=== PATIENT | female | born 1990 | race Caucasian/White ===

== ENCOUNTER 2017-02-14 21:10 | Emergency (ER) | payer OTHER ==
--- NOTE | ~2017-02-14 | ER ---
PATIENT'S NAME: ZARINA DAIGLE [facility] AGE: 26 Y [address] ROOM: [place] [id number] LOCATION: ED ADMIT DATE: 02/14/2017 ER/Outpatient Report DISCHARGE DATE: 02/14/2017 FAMILY PHYSICIAN: PHYSICIAN, NO ATTENDING PHYSICIAN: Flo Vale CHIEF COMPLAINT: Body aches, headache. TIME OF THE PATIENT ARRIVAL: 0 hours. TIME OF THE PATIENT EVALUATION: 2114 hours. HISTORY OF PRESENT ILLNESS: This is a 26-year-old female who presents to the ER who states she drank some absinthe alcohol drink 4 nights ago. She states the next morning she woke up and had a terrible headache from it. She states she has been taking Excedrin Migraine with no relief of her headache. She has continued to feel nauseated. She states she has generalized achiness all over her body. She has a sore throat and just generally does not feel well. She is not for sure if she has been running any fevers at home, but she has felt hot. She denies any troubles with bowel movements or urination. ALLERGIES: BACTRIM. MEDICATIONS: Please see medication list nurse's notes. PAST MEDICAL HISTORY: Fibromyalgia, chronic back pain, and tonsillectomy. SOCIAL HISTORY: She drinks wine daily. REVIEW OF SYSTEMS: All systems reviewed were negative with the exception of those discussed in the HPI. PHYSICAL EXAMINATION: VITAL SIGNS: Height 5 feet, 3 inches stated, weight 105.2 kg taken, blood pressure is 141/92, pulse 98, respirations 16, temperature 98.1 degrees tympanically, and saturations 97% on room air. Liz Coma Score is 15. PATIENT'S NAME: ZARINA DAIGLE [facility] AGE: 26 Y [address] ROOM: [place], [place] [id number] LOCATION: [facility] ADMIT DATE: 02/14/2017 ER/Outpatient Report DISCHARGE DATE: 02/14/2017 FAMILY PHYSICIAN: PHYSICIAN, NO ATTENDING PHYSICIAN: Flo Vale GENERAL: Alert, obese female, in no obvious distress. HEENT: Head: Normocephalic. Eyes: Pupils are equal and reactive to light. Ears: TMs display good reflexes bilaterally. Auditory canals clear. Nose: Turbinates pink with no drainage. Throat: No exudates or erythema. She does display moist mucous membranes. LUNGS: Clear to auscultation bilaterally. HEART: Regular rate and rhythm. ABDOMEN: She has generalized tenderness in all 4 quadrants with palpation. No guarding. No rebound tenderness. She has good bowel sounds throughout. EXTREMITIES: No clubbing or cyanosis. She has full range of motion of all limbs. SKIN: Warm, dry, and intact. LABORATORY DATA: CBC: White count is 5.4, platelets 200, ANC is 2.1. CMS: Sodium was 139, potassium 3.5, total bili is 0.8, alk phos is 248, AST 253, ALT 170; otherwise, unremarkable. HCG was less than 1.0. IMPRESSION: Headache, body aches, and nausea. ASSESSMENT AND PLAN: We did monitor the patient here in the emergency room. We did give the patient 2 Pall Mall here in the emergency room for her pain. The patient did not wish for any further workup in regards to her liver enzymes being elevated. She would like to try some nausea medication and possibly a few pain medications to see how that would make her feel at home to see if she could make herself feel better. I will dismiss her home with prescriptions for Pall Mall and Zofran to use as directed. She needs to push fluids and monitor her symptoms. She needs to follow up with her primary care physician for followup when she returns to [place] or she should return to the emergency room if anything worsens. The patient and the patient's sister understand and agree with care. JL DESOUZA PA-C FOR MD DEBBY REED/surya /[id number] d: 02/15/17 0016 t: 02/25/17 1817, OUTPATIENT REPORT
[2017-02-14 21:54] LABS: HEMATOCRIT 44.1 % (33.0-46.0); HEMOGLOBIN 14.9 g/dL (11.0-15.0); MCH 29.6 pg (27.0-34.0); MCHC 33.8 gm/dL (32.0-36.5); MCV 87.5 fl (83.0-98.0); MPV 9.6 fl (9.4-12.4); PLATELET COUNT 200 K/uL (150-450); RBC 5.04 M/uL (3.50-5.00); RDW-CV 12.4 % (11.9-14.6); WBC 5.4 K/uL (4.0-11.0)
[2017-02-14 22:16] LABS: ALBUMIN 3.5 gm/dL (3.5-5.0); ALK PHOS 248 IU/L (33-138); ALT 170 IU/L (12-78); ANION GAP 12.5 (10.0-19.0); AST 253 IU/L (10-40); BLOOD UREA NITROGEN 8 mg/dL (6-24); CALCIUM 8.8 mg/dL (8.5-10.5); CHLORIDE 105 mMol/L (96-110); CO2 25 mMol/L (22-32); CREATININE 0.9 mg/dL (0.5-1.1); POTASSIUM 3.5 mMol/L (3.7-5.1); SODIUM 139 mMol/L (135-145); TOTAL BILIRUBIN 0.8 mg/dL (0.0-1.5); TOTAL PROTEIN 8.2 g/dL (6.0-8.4)
[2017-02-14 22:17] LABS: ABSOLUTE NEUTROPHIL CT (ANC) 2.1 K/uL (1.8-7.8); BANDED NEUTROPHIL # 0.6 K/uL (0.0-0.1); BANDED NEUTROPHILS % 12 %; LYMPHOCYTE % 38 %; SEGMENTED NEUTROPHIL # 1.5 K/uL (1.8-7.8); SEGMENTED NEUTROPHIL % 27 %
[2017-02-14 22:21] LABS: LYMPHOCYTE # 2.3 K/uL (0.8-4.0); MONOCYTE # 0.7 K/uL (0.0-1.0)
== END 2017-02-14 22:57 | disposition disaster alternative care site (69) ==
LOC: GMED 21:10
PROVIDERS: Physician Assistant Medical
DX: R51 Headache (principal); M79.1 Myalgia; R11.0 Nausea; G89.29 Other chronic pain; Z90.89 Acquired absence of other organs; Z79.82 Long term (current) use of aspirin; Z79.899 Other long term (current) drug therapy; Z88.1 Allergy status to other antibiotic agents